=== PATIENT | female | born 2000 ===

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

== ENCOUNTER → 2020-03-15 | Outpatient (CLI) | payer OTHER ==
[2020-03-16 10:24] LABS: Candida species (DNA Probe) Positive (NEGATIVE); G. vaginalis (DNA Probe) Negative (NEGATIVE); T. vaginalis (DNA Probe) Negative (NEGATIVE)
== END ==
LOC: LAB SHORT 17:15 → LAB 17:15
PROVIDERS: Registered Nurse
DX: N89.8 Other specified noninflammatory disorders of vagina (principal); L29.8 Other pruritus
CPT/HCPCS: 87480; 87510; 87660